=== PATIENT | male | born 1945 | race Caucasian/White ===

== ENCOUNTER → 2016-09-24 | Outpatient (CLI) | payer OTHER ==
[~2016-09-24] VITALS: Ht 170.2 cm; Wt 72.6 kg
[~2016-09-24] MED LIST: REGADENOSON 0.4 MG/5 ML DISP.SYRIN. IV ONE
--- NOTE | 2016-09-24 13:39 | RAD ---
APPROVED REPORT Test Type: Pharmacological Stress Nurse/Tech: Darlene Thomson R.N. Test Indications: cad Cardiac History: CO, cabg 10 yrs ago Medications: see ehr Medical History: see ehr Resting ECG: sr Resting Heart Rate: 56 bpm Resting Blood Pressure: 142/73mmHg Pretest Chest Pain: No chest pain Nurse/Tech Notes lungs cta, heart tones regular, good radial pulse Consent: The procedure was explained to the patient in lay terms. Informed consent was witnessed. Trey eout was entered into [employer]. History and Stress Test performed by Darlene Thomson R.N. Pharm. Details Pharmacologic stress testing was performed using 0.4mg per 5ml of regadenoson given intravenously ove r 7-10 seconds. Stress Symptoms No chest pain or symptoms. POST EXERCISE Reason for Termination: Infusion complete Max HR: 82 bpm Max Blood Pressure: 132/66mmHg Chest Pain: No. Arrhythmia: No. ST Change: No. INTERPRETATION Stress EKG Conclusion: The resting EKG shows a sinus rhythm with mild anterior ST segment changes. The stress EKG shows no significant changes from baseline. No EKG evidence of stress-induced ischemia. Imaging Protocol IMAGE PROTOCOL: Rest Tc-99m/stress Tc-99m 1 day Rest: Stress: Viability: Radiopharm.Tc99m PydenilghYy05s Sestamibi Dose11.3mCi 32.3mCi Img Date 09/24/2016 09/24/2016 Inj-Img Cziq76plw. 75min. Rest Admin Site:IV - Right AntecubitalAdministrator:SABA Mar Stress Admin Site: IV - Right AntecubitalAdministrator: Harrison Norris, RT (R)(N) STRESS DATA End Diast. Vol.67.0mlAv. Heart Rate66.0bpm End Syst. Vol.12.0mlCO Index BSA0.0L/min Myocardial Xxhh157.0gEject. Rtxdmedg74.0% Stress Rates Pk. Fill Rate3.48EDV/secLVtime Pk. Fill 217.23msec Pk. Empty Rate4.42ESV/secLVtime Pk. Ifojo180.03msec 06/17 Pk. Fill0.69EDV/sec Stress Scores Regional WT1.00Summed WT3.00 Regional WM0.00Summed WM11.00 LV Perfusion The stress scans showed no significant defects. The rest scans showed no significant defects. Nuclear imaging shows no reversible ischemia or infarct. Wall Motion Left ventricular systolic function is normal with an ejection fraction of greater than 70%. LV Perf. Quant 17 Seg. SSS1.00 17 Seg. SRS3.00 17 Seg. SDS0.00 Stress Defect Extent (% LAD)0.00Rest Defect Extent (% LAD)0.00Rev. Defect Extent (% LAD)0.00 Stress Defect Extent (% LCX) 20.00Rest Defect Extent (% LCX)33.80Rev. Defect Extent (% LCX)0.00 Stress Defect Extent (% RCA)0.00Rest Defect Extent (% RCA)0.00Rev. Defect Extent (% RCA)0.00 Stress Defect Extent (% TAYLA)4.10Rest Defect Extent (% TAYLA)5.90Rev. Defect Extent (% TAYLA)0.00 Conclusion 1. No EKG evidence of stress-induced ischemia. 2. Nuclear imaging shows no reversible ischemia or infarct. 3. Normal left ventricular systolic function with an ejection fraction of greater than 70%. 4. Low risk Lexiscan nuclear stress test.
== END | disposition home or self-care (01) ==
LOC: NM 08:56
PROVIDERS: ATTEND Internal Medicine Cardiovascular Disease
DX: I25.10 Atherosclerotic heart disease of native coronary artery without angina pectoris (principal)
CPT/HCPCS: 78452; 93017; 96374; 96375; 96376; A9500; J2785

== ENCOUNTER → 2018-04-22 | Outpatient (CLI) | payer OTHER ==
--- NOTE | 2018-04-22 10:05 | CARD ---
MR#: [id number] Date of Study: 04/22/2018 Ordering Physician: SHENG WILKINS, Referring Physician: SHENG WILKINS Tech: Harriett Nicolas RDCS APPROVED REPORT EXAM: Two-dimensional and M-mode echocardiogram with Doppler and color Doppler. Other Information Quality : AverageHR: 62bpm Rhythm : NSR INDICATION CAD Surgery/Intervention Status/Post Aortic Valve Replacement: Bioprosthetic 2D DIMENSIONS RVDd2.2 (2.9-3.5cm)Left Atrium(2D)4.3 (1.6-4.0cm) IVSd1.2 (0.7-1.1cm)Aortic Root(2D)2.9 (2.0-3.7cm) LVDd4.4 (3.9-5.9cm)LVOT Diameter2.1 (1.8-2.4cm) PWd0.8 (0.7-1.1cm)LVDs3.0 (2.5-4.0cm) FS (%) 32.3 %SV53.7 ml LVEF(%)60.8 (>50%) M-Mode DIMENSIONS Left Atrium(MM)4.10 (2.5-4.0cm)Aortic Root3.32 (2.2-3.7cm) Aortic Valve AoV Peak Sebastian.220.4cm/sAoV VTI52.9cm AO Peak GR.19.4mmHgLVOT Peak Sebastian.83.7cm/s AO Mean GR.11mmHgAVA (VMAX)1.34cm2 DWAIN (VTI)1.60cm2 Mitral Valve MV E Ycfskfmj976.5cm/sMV E Peak Gr.4mmHg MV DECEL KEMH204bdKB A Huogquoh09.3cm/s MV E Mean Gr.1mmHgE/A Ratio1.8 MV A Yndimxvp840vp Pulmonary Valve PV Peak Mjtbgnkw42.8cm/s LEFT VENTRICLE The left ventricle is normal size. Proximal septal thickening is noted. The left ventricular systolic function is normal and the ejection fraction is within normal range. The Ejection Fraction is 55-60% . There is normal LV segmental wall motion. Transmitral Doppler flow pattern is Grade II-pseudonormal filling dynamics. RIGHT VENTRICLE The right ventricle is normal size. There is normal right ventricular wall thickness. The right ventr icular systolic function is normal. ATRIA The left atrium is borderline dilated. The right atrium size is normal. The interatrial septum is int act with no evidence for an atrial septal defect or patent foramen ovale as noted on 2-D or Doppler i maging. AORTIC VALVE Doppler and Color Flow revealed trace aortic regurgitation. There is no significant aortic valvular s tenosis. There is a prosthetic aortic valve. The prosthetic aortic valve appears well seated. The jeannine ve is functioning normally MITRAL VALVE The mitral valve is normal in structure and function. There is no evidence of mitral valve prolapse. There is no mitral valve stenosis. Doppler and Color-flow revealed trace mitral regurgitation. TRICUSPID VALVE The tricuspid valve is normal in structure and function. Doppler and Color Flow revealed no tricuspid valve regurgitation noted. There is no tricuspid valve prolapse or vegetation. There is no tricuspid valve stenosis. PULMONIC VALVE Pulmonic valve is not well visualized. Doppler and Color Flow revealed trace pulmonic valvular regurg itation. There is no pulmonic valvular stenosis. GREAT VESSELS The aortic root is normal in size. The ascending aorta is normal in size. PERICARDIAL EFFUSION There is no evidence of significant pericardial effusion. Critical Notification Critical Value: No <Conclusion> The left ventricle is normal size. The left ventricular systolic function is normal and the ejection fraction is within normal range. The Ejection Fraction is 55-60%. There is a prosthetic aortic valve. The prosthetic aortic valve appears well seated. The valve is functioning normally Doppler and Color-flow revealed trace mitral regurgitation. Doppler and Color Flow revealed no tricuspid valve regurgitation noted. Signed by : Reuben Zhao MD Electronically Approved : 04/22/2018 10:04:37
== END | disposition home or self-care (01) ==
LOC: ECHO 08:54
PROVIDERS: ATTEND Internal Medicine Cardiovascular Disease
DX: I25.10 Atherosclerotic heart disease of native coronary artery without angina pectoris (principal); Z95.2 Presence of prosthetic heart valve
CPT/HCPCS: 93306

== ENCOUNTER → 2018-10-21 | Outpatient (CLI) | payer OTHER ==
--- NOTE | 2018-10-21 11:54 | RAD ---
MR#: [id number] Date of Study: 10/21/2018 Ordering Physician: SHENG WILKINS Referring Physician: ABDIFATAH HARDIN Tech: SABA Mar APPROVED REPORT Test Type: Pharmacological Stress Nurse/Tech: Isabel Viramnotes R.N. Test Indications: CAD Cardiac History: CABG, CKD Medications: See Electronic Medical Record Medical History: See Electronic Medical Record Resting ECG: SB w/ inverted P wave in leads AVR, AVL and V2 Resting Heart Rate: 54 bpm Resting Blood Pressure: 129/73mmHg Pretest Chest Pain: No chest pain Nurse/Tech Notes S1S2, lungs CTA Consent: The procedure was explained to the patient in lay terms. Informed consent was witnessed. Trey eout was entered into [employer]. History and Stress Test performed by SABA Mar Pharm. Details Pharmacologic stress testing was performed using 0.4mg per 5ml of regadenoson given intravenously ove r 7-10 seconds. Stress Symptoms No chest pain or symptoms. POST EXERCISE Reason for Termination: Infusion complete Max HR: 89 bpm Max Blood Pressure: 125/62mmHg Blood Pressure response to exercise: Normal blood pressure response during stress. Heart Rate response to exercise: wnl Chest Pain: No. Arrhythmia: No. ST Change: No. INTERPRETATION Stress EKG Conclusion: No evidence of stress induced EKG changes. Imaging Protocol IMAGE PROTOCOL: Rest Tc-99m/stress Tc-99m 1 day Rest: Stress: Viability: Radiopharm.Tc99m CfycejmnrDd07u Sestamibi Dose11.2mCi 33mCi Duration 16min. 13min. Img Date 10/21/2018 10/21/2018 Inj-Img Hsbd17mrn. 60min. STRESS DATA End Diast. Vol.81.0mlEnd Syst. Vol.21.0ml Myocardial Uwhm279.0gEject. Sfrybfjp97.0% Stress Scores Regional WT0.00Summed WT9.00 Regional WM0.00Summed WM11.00 The rest and stress images show normal perfusion, normal contraction and thickening. LV Perfusion 1 TCD/TID: Yes LV Perf. Quant 17 Seg. SSS3.00 17 Seg. SRS2.00 17 Seg. SDS1.00 Stress Defect Extent (% LAD)1.90Rest Defect Extent (% LAD)2.50Rev. Defect Extent (% LAD)0.00 Stress Defect Extent (% LCX) 21.30Rest Defect Extent (% LCX)16.30Rev. Defect Extent (% LCX)0.00 Stress Defect Extent (% RCA)0.00Rest Defect Extent (% RCA)0.00Rev. Defect Extent (% RCA)0.00 Stress Defect Extent (% TAYLA)5.70Rest Defect Extent (% TAYLA)7.40Rev. Defect Extent (% TAYLA)0.00 Other Information Quality:Good Risk Assessment: Moderate Risk Conclusion 1. No evidence of stress induced EKG changes. 2. Normal perfusion at stress/rest. 3. There is TID noted at 1.43 suggestive of balanced ischemia versus small vessel disease. 4. Normal EF at > 60%. 5. Moderate risk study Signed by : Jayce Neal, Electronically Approved : 10/21/2018 11:53:36
--- NOTE | 2018-10-21 17:23 | RAD ---
MR#: [id number] Date of Study: 10/21/2018 Ordering Physician: SHENG WILKINS, Referring Physician: SHENG WILKINS, Tech: Amanda Lewis RDMS, RVT APPROVED REPORT Patient Location: OUT-PATIENT Laterality:Bilateral Indications HISTORY OF BILATERAL ENDARECTOMIES, ASYMPTOMATIC CURRENTLY Surgery/Intervention Endarterectomy: right left Doppler Spectral Velocity Analysis Right Left pCCA 92/21 cm/spCCA 98/23 cm/s mCCA 83/17 cm/smCCA 94/24 cm/s dCCA 71/18 cm/sdCCA 73/19 cm/s Bulb 47/7 cm/sBulb 69/16 cm/s ECA 153/12 cm/sECA 95/11 cm/s pICA 82/15 cm/spICA 48/15 cm/s [place] 75/19 cm/smICA 68/23 cm/s dICA 72/20 cm/sdICA 79/24 cm/s Vert. 33/10 cm/sVert. 35/8 cm/s Subcl. 137/41 cm/sSubcl. 114/38 cm/s ICA/CCA 0.89ICA/CCA 0.81 Findings Based on velocity criteria there is overall 0 to less than 50% stenosis involving the bilateral inter nal carotid vessels. No significant vertebral stenosis is identified. Normal ICA to CCA ratios noted. The bilateral subcla vian velocities are within normal limits. Critical Notification Critical Value: No <Conclusion> 1. No significant bilateral internal carotid artery disease. Signed by : Jayce Neal, Electronically Approved : 10/21/2018 17:23:03
== END | disposition home or self-care (01) ==
LOC: NM 07:45
PROVIDERS: ATTEND Internal Medicine Cardiovascular Disease
DX: I25.10 Atherosclerotic heart disease of native coronary artery without angina pectoris (principal); I65.23 Occlusion and stenosis of bilateral carotid arteries; N18.9 Chronic kidney disease, unspecified; Z95.1 Presence of aortocoronary bypass graft; Z79.01 Long term (current) use of anticoagulants; Z87.891 Personal history of nicotine dependence
CPT/HCPCS: 78452; 93017; 93880; A9500; J2785

== ENCOUNTER → 2019-04-29 | Outpatient (CLI) | payer OTHER ==
--- NOTE | 2019-04-29 10:34 | CARD ---
MR#: [id number] Date of Study: 04/29/2019 Ordering Physician: SHENG STEINBERG, Referring Physician: Mathew HARDIN: Francesca Noguera APPROVED REPORT EXAM: Two-dimensional and M-mode echocardiogram with Doppler and color Doppler. Other Information Quality : AverageHR: 56bpm INDICATION CAD 2D DIMENSIONS RVDd2.1 (2.9-3.5cm)Left Atrium(2D)4.0 (1.6-4.0cm) IVSd1.3 (0.7-1.1cm)Aortic Root(2D)1.7 (2.0-3.7cm) LVDd3.9 (3.9-5.9cm)LVOT Diameter1.5 (1.8-2.4cm) PWd0.8 (0.7-1.1cm)LVDs2.3 (2.5-4.0cm) FS (%) 41.4 %SV48.5 ml LVEF(%)72.9 (>50%) Aortic Valve AoV Peak Sebastian.186.6cm/sAoV VTI42.2cm AO Peak GR.13.9mmHgLVOT Peak Sebastian.66.0cm/s AO Mean GR.8mmHgAVA (VMAX)0.66cm2 Mitral Valve MV E Mexudkks61.7cm/sMV E Peak Gr.5mmHg MV DECEL AVJF647hnXZ A Unewksxj36.7cm/s MV E Mean Gr.1mmHgE/A Ratio1.3 Pulmonary Valve PV Peak Tiszmsoa30.8cm/s Tricuspid Valve TR P. Nuhuufzg651hm/sRAP HLWYUDAY8xtRp TR Peak Gr.94rvBuFELI31kjZh Pulmonary Vein S1 Jiwmoojp71.2cm/sD2 Mlhmbbkm60.5cm/s LEFT VENTRICLE The left ventricle is normal size. There is mild septal left ventricular hypertrophy. The left ventri cular systolic function is normal. The Ejection Fraction is 60-65%. There is normal LV segmental wall motion. Transmitral Doppler flow pattern is Grade II-pseudonormal filling dynamics. RIGHT VENTRICLE The right ventricle cavity is small. The right ventricular systolic function is normal. ATRIA The left atrium size is normal. The right atrium size is normal. The interatrial septum is intact wit h no evidence for an atrial septal defect or patent foramen ovale as noted on 2-D or Doppler imaging. AORTIC VALVE There is a bioprosthetic valve seated in the aortic position. Doppler and Color Flow revealed trace a ortic regurgitation. There is no significant aortic valvular stenosis. MITRAL VALVE The mitral valve is thickened but opens well. There is no evidence of mitral valve prolapse. There is no mitral valve stenosis. Doppler and Color-flow revealed trace mitral regurgitation. TRICUSPID VALVE The tricuspid valve is normal in structure and function. Doppler and Color Flow revealed mild tricusp id regurgitation. There is no tricuspid valve stenosis. PULMONIC VALVE The pulmonic valve is not well visualized. Doppler and Color Flow revealed no pulmonic valvular regur gitation. GREAT VESSELS The aortic root is normal in size. The ascending aorta is Mildly dilated. The IVC was not visualized. PERICARDIAL EFFUSION There is no pleural effusion. There is no evidence of significant pericardial effusion. Critical Notification Critical Value: No <Conclusion> The left ventricular systolic function is normal. The Ejection Fraction is 60-65%. There is normal LV segmental wall motion. Trace aortic regurgitation. Trace mitral regurgitation. Mild tricuspid regurgitation. There is no evidence of significant pericardial effusion. Signed by : Sheng Steinberg, Electronically Approved : 04/29/2019 10:34:05
--- NOTE | 2019-04-29 11:15 | RAD ---
Bilateral lower extremity arterial ultrasound History: Leg pain Findings: Multiple grayscale, color, and duplex spectral analysis sonographic images were acquired of the lower extremity arteries bilaterally. There are no previous similar exams. There is scattered plaque bilaterally. No vessel occlusion is demonstrated. Other than triphasic waveform of the right common femoral artery, there are biphasic waveforms throughout the lower extremity arteries bilaterally. Velocities in cm/sec: RIGHT Common femoral artery 141 Profunda femoris artery 102 Proximal SFA 103 Mid SFA 197 Distal SFA 97 Popliteal artery 61 Posterior tibial artery 57 proximally and 55 distally Peroneal artery 41 Anterior tibial artery 61 Dorsalis pedis artery 74 LEFT: Common femoral artery 120 Profunda femoris artery 88 Proximal SFA 87 Mid SFA 100 Distal SFA 67 Popliteal artery 81 Posterior tibial artery 64 proximally and 69 distally Peroneal artery 67 Anterior tibial artery 30 Dorsalis pedis artery 15 Impression: 1. There is increasing velocity between the proximal to mid right superficial femoral artery likely due to underlying stenosis. There is scattered plaque bilaterally. Electronically signed by: Ethan Felipe MD (04/29/2019 11:13 AM) [facility]
--- NOTE | 2019-04-29 12:28 | RAD ---
MR#: [id number] Date of Study: 04/29/2019 Ordering Physician: SHENG WILKINS, Referring Physician: ABDIFATAH HARDIN Tech: SABA Mar APPROVED REPORT Test Type: Pharmacological Stress Nurse/Tech: Juan Pablo CONNORS Test Indications: CAD Cardiac History: CABG x5 15 yrs ago, See EMR Medications: ASA 81mg QD, See EMR Medical History: X-Smoker quit 20 yrs ago, See EMR Resting ECG: SB Resting Heart Rate: 56 bpm Resting Blood Pressure: 134/66mmHg Pretest Chest Pain: No chest pain Nurse/Tech Notes Lung CTA, Heart tones regular. Consent: The procedure was explained to the patient in lay terms. Informed consent was witnessed. Trey eout was entered into [employer]. History and Stress Test performed by RT Ronel (R) (N) Pharm. Details Pharmacologic stress testing was performed using 0.4mg per 5ml of regadenoson given intravenously ove r 7-10 seconds. Stress Symptoms No chest pain or symptoms. POST EXERCISE Reason for Termination: Infusion complete Max HR: 82 bpm Max Blood Pressure: 120/61mmHg Blood Pressure response to exercise: Normal blood pressure response during stress. Heart Rate response to exercise: WNL Chest Pain: No. Arrhythmia: No. ST Change: No. INTERPRETATION Stress EKG Conclusion: Baseline EKG showed sinus rhythm. No ischemic changes at peak stress. No arr hythmias. Rest: Stress: Viability: Radiopharm.Tc99m ImcmoxcrlMa66x Sestamibi Dose10.2mCi 33mCi Duration 15min. 10min. Img Date 04/29/2019 04/29/2019 STRESS DATA End Diast. Vol.74.0mlAv. Heart Rate66.0bpm End Syst. Vol.11.0mlCO Index BSA0.0L/min Myocardial Dzhn965.0gEject. Oynvjxmg69.0% Stress Rates Pk. Fill Rate3.72EDV/secLVtime Pk. Fill 160.76msec Pk. Empty Rate3.71ESV/secLVtime Pk. Tdjwe780.42msec 1/3 Pk. Fill1.80EDV/sec Stress Scores Regional WT1.00Summed WT2.00 Regional WM0.00Summed WM7.00 Study quality was good. Left Ventricular size was Normal at Rest and Stress. Lung uptake was . Left Ventricular ejection fraction is 85%. The rest and stress images show normal perfusion, normal contraction and thickening. LV Perf. Quant 17 Seg. SSS4.00 17 Seg. SRS5.00 17 Seg. SDS0.00 Stress Defect Extent (% LAD)1.30Rest Defect Extent (% LAD)0.00Rev. Defect Extent (% LAD)0.00 Stress Defect Extent (% LCX) 21.30Rest Defect Extent (% LCX)23.80Rev. Defect Extent (% LCX)0.00 Stress Defect Extent (% RCA)0.00Rest Defect Extent (% RCA)0.00Rev. Defect Extent (% RCA)0.00 Stress Defect Extent (% TAYLA)6.50Rest Defect Extent (% TAYLA)6.10Rev. Defect Extent (% TAYLA)0.00 Conclusion 1. Regadenoson cardioisotope stress test did not show any evidence of ischemia or infarct. 2. Normal left ventricular systolic function with ejection fraction calculated at 85%. 3. Low risk for cardiac events. Signed by : Sheng Wilkins Electronically Approved : 04/29/2019 12:27:46
== END | disposition home or self-care (01) ==
LOC: NM 07:30
PROVIDERS: ATTEND Internal Medicine Cardiovascular Disease
DX: I36.1 Nonrheumatic tricuspid (valve) insufficiency (principal); I70.293 Other atherosclerosis of native arteries of extremities, bilateral legs; I25.10 Atherosclerotic heart disease of native coronary artery without angina pectoris; I51.7 Cardiomegaly; Z95.1 Presence of aortocoronary bypass graft; Z87.891 Personal history of nicotine dependence
CPT/HCPCS: 78452; 93017; 93306; 93925; A9500; J2785

== ENCOUNTER → 2020-05-15 | Outpatient (CLI) | payer MEDICARE ==
--- NOTE | 2020-05-15 13:02 | CARD ---
MR#: [id number] Date of Study: 05/15/2020 Ordering Physician: SHENG WILKINS, Referring Physician: SHENG WILKINS, Tech: Gayla Gotti RDCS APPROVED REPORT EXAM: Two-dimensional and M-mode echocardiogram with Doppler and color Doppler. Other Information Quality : AduquateHR: 59bpm Rhythm : NSRTechnically limited study due to body habitus/pectus INDICATION CAD, Aortic valve replacement. CABG 2D DIMENSIONS RVDd3.7 (2.9-3.5cm)IVSd1.2 (0.7-1.1cm) Aortic Root(2D)3.2 (2.0-3.7cm)LVDd4.1 (3.9-5.9cm) PWd1.0 (0.7-1.1cm)LVDs2.5 (2.5-4.0cm) FS (%) 38.9 %SV52.4 ml LVEF(%)69.8 (>50%) Aortic Valve AoV Peak Sebastian.213.8cm/sAoV VTI48.8cm AO Peak GR.18.3mmHgLVOT Peak Sebastian.72.4cm/s AO Mean GR.10mmHg Mitral Valve MV E Wzcevbew68.3cm/sMV DECEL UCWC956rj MV A Fdiepwuv87.6cm/sE/A Ratio1.5 MV A Iwbcnrrt440vg Pulmonary Valve PV Peak Wcnmvydv33.3cm/s Tricuspid Valve TR P. Ixfxgoxt522tw/sRAP HTOFAPDM0dxJf TR Peak Gr.07xnSbLSMW70zxYo LEFT VENTRICLE The left ventricle is normal size. Mild basal septal hypertrophy. Left ventricle systolic function is normal. The Ejection Fraction is 60-65%. There is normal LV segmental wall motion. Moderate diastoli c dysfunction. Grade II. RIGHT VENTRICLE The right ventricle is normal size. The right ventricular systolic function is normal. ATRIA The left atrium size is normal. The right atrium size is normal. The interatrial septum is intact wit h no evidence for an atrial septal defect or patent foramen ovale as noted on 2-D or Doppler imaging. AORTIC VALVE There is a bioprosthetic-porcine valve present, probable jaime TAVR. Peak pressure gradient through the valve is 18mmHg and mean of 10mmHg. Mild paravalvular aortic regurgitation. MITRAL VALVE The mitral valve is normal in structure. There is no mitral valve stenosis. Mild mitral regurgitation . TRICUSPID VALVE The tricuspid valve is normal in structure and function. Mild tricuspid regurgitation. The PA pressur e was estimated at 30-35 mmHg. There is no tricuspid valve stenosis. PULMONIC VALVE The pulmonic valve is not well visualized. Trace pulmonic valvular regurgitation. There is no pulmoni c valvular stenosis. GREAT VESSELS The aortic root is normal in size. The ascending aorta is normal in size. The IVC is normal in size a nd collapses >50% with inspiration. PERICARDIAL EFFUSION There is no evidence of significant pericardial effusion. Critical Notification Critical Value: No <Conclusion> Left ventricle systolic function is normal. The Ejection Fraction is 60-65%. There is normal LV segmental wall motion. There is a bioprosthetic-porcine valve present, probable jaime TAVR. Peak pressure gradient through the valve is 18mmHg and mean of 10mmHg. Mild paravalvular aortic regurgitation. Signed by : Jayce Neal, Electronically Approved : 05/15/2020 13:02:23
== END ==
LOC: ECHO 11:00
PROVIDERS: ATTEND Internal Medicine Cardiovascular Disease
DX: I08.3 Combined rheumatic disorders of mitral, aortic and tricuspid valves (principal); I25.10 Atherosclerotic heart disease of native coronary artery without angina pectoris
CPT/HCPCS: 93306

== ENCOUNTER → 2020-06-29 | Outpatient (CLI) | payer MEDICARE ==
[2020-06-29 08:00] LABS: CHOLESTEROL/HDL RATIO 2.4
--- NOTE | 2020-06-29 09:32 | RAD ---
MR#: [id number] Date of Study: 06/29/2020 Ordering Physician: SHENG WILKINS, Referring Physician: SHENG WILKINS, Tech: APPROVED REPORT Patient Location: OUT-PATIENT Laterality:Bilateral Indications carotid artery stenosis Doppler Spectral Velocity Analysis Right Left pCCA 72/18 cm/spCCA 97/25 cm/s mCCA 86/20 cm/smCCA 89/22 cm/s dCCA 75/17 cm/sdCCA 81/22 cm/s Bulb 7/ cm/sBulb ECA 142/ cm/sECA 86/ cm/s pICA 71/14 cm/spICA 52/15 cm/s [place] 65/19 cm/smICA 63/22 cm/s dICA 80/27 cm/sdICA 84/28 cm/s ICA/CCA 0.93ICA/CCA 0.87 Findings Grayscale images of the bilateral common carotid, external and internal carotid vessels demonstrates moderate diffuse intimal hyperplasia with mild diffuse scattered plaque. Based on spectral waveforms and color Doppler there is overall 0 to less than 50% stenosis in the bilateral internal carotid art eries. Normal ICA to CCA ratios bilaterally. Normal antegrade vertebral velocities bilaterally. Critical Notification Critical Value: No <Conclusion> 1. No significant bilateral carotid occlusive disease. Signed by : Jayce Neal, Electronically Approved : 06/29/2020 09:31:38
--- NOTE | 2020-06-30 09:48 | RAD ---
MR#: [id number] Date of Study: 06/29/2020 Ordering Physician: SHENG WILKINS, Referring Physician: ABDIFATAH HARDIN Tech: SABA Mar APPROVED REPORT Test Type: Pharmacological Stress Nurse/Tech: Boom Han RN Test Indications: CAD Cardiac History: SC 12yrs ago, CABG, See EMR. Medications: ASA, See EMR. Medical History: X-Smoker, CKD, See EMR. Resting ECG: SR Resting Heart Rate: 56 bpm Resting Blood Pressure: 128/70mmHg Pretest Chest Pain: No chest pain Nurse/Tech Notes Lungs CTA, Heart tones regular. Consent: The procedure was explained to the patient in lay terms. Informed consent was witnessed. Trey eout was entered into [employer]. History and Stress Test performed by MARY BETH Boo, NICANOR (R) (N) Pharm. Details Pharmacologic stress testing was performed using 0.4mg per 5ml of regadenoson given intravenously ove r 7-10 seconds. Stress Symptoms No chest pain or symptoms. POST EXERCISE Reason for Termination: Infusion complete Max HR: 77 bpm Max Blood Pressure: 128/54mmHg Blood Pressure response to exercise: Normal blood pressure response during stress. Heart Rate response to exercise: WNL Chest Pain: No. Arrhythmia: No. ST Change: No. INTERPRETATION Stress EKG Conclusion: Baseline EKG showed sinus rhythm. No ischemic changes at peak stress. No arr hythmias. Imaging Protocol IMAGE PROTOCOL: Rest Tc-99m/stress Tc-99m 1 day Rest: Stress: Viability: Radiopharm.Tc99m AxlwnhxegRw15n Sestamibi Fgzw88bVe 32mCi Duration 15min. 13.5min. Img Date 06/29/2020 06/29/2020 Inj-Img Jbzv86ktr. 60min. Rest Admin Site:IV - Right AntecubitalAdministrator:Azalea Whittaker RT (R)(N) Stress Admin Site: IV - Right AntecubitalAdministrator: MARY BETH Boo, JUAN PABLOT (R)(N) STRESS DATA End Diast. Vol.76.0mlLVEDV index BSA41.0ml End Syst. Vol.18.0mlLVESV index BSA10.0ml Myocardial Ciev853.0gEject. Gynvyybf28.0% Stress Scores Regional WT0.00Summed WT0.00 Regional WM0.00Summed WM8.00 Study quality was good. Left Ventricular size was Normal at Rest and Stress. Lung uptake was . Left Ventricular ejection fraction is 75%. The rest and stress images show normal perfusion, normal contraction and thickening. LV Perf. Quant 17 Seg. SSS4.00 17 Seg. SRS1.00 17 Seg. SDS3.00 Stress Defect Extent (% LAD)0.00Rest Defect Extent (% LAD)0.00Rev. Defect Extent (% LAD)0.00 Stress Defect Extent (% LCX) 32.50Rest Defect Extent (% LCX)2.50Rev. Defect Extent (% LCX)28.80 Stress Defect Extent (% RCA)0.00Rest Defect Extent (% RCA)0.00Rev. Defect Extent (% RCA)0.00 Stress Defect Extent (% TAYLA)7.80Rest Defect Extent (% TAYLA)1.10Rev. Defect Extent (% TAYLA)5.70 Conclusion 1. Regadenoson cardioisotope stress test did not show any evidence of ischemia or infarct. 2. Normal left ventricular systolic function with ejection fraction calculated at 75%. 3. Low risk for cardiac events. Signed by : Sheng Wilkins, Electronically Approved : 06/30/2020 09:47:28
== END ==
LOC: NM 09:28
PROVIDERS: ATTEND Internal Medicine Cardiovascular Disease
DX: I65.23 Occlusion and stenosis of bilateral carotid arteries (principal); I25.10 Atherosclerotic heart disease of native coronary artery without angina pectoris; I25.2 Old myocardial infarction
CPT/HCPCS: 36415; 78452; 80061; 93017; 93880; A9500; J2785

== ENCOUNTER → 2021-07-24 | Outpatient (CLI) | payer MEDICARE ==
--- NOTE | 2021-07-24 17:30 | CARD ---
MR#: [id number] Date of Study: 07/24/2021 Ordering Physician: SHENG WILKINS, Referring Physician: SHENG WILKINS Tech: Samantha Luis [facility] APPROVED REPORT EXAM: Two-dimensional and M-mode echocardiogram with Doppler and color Doppler. Other Information Quality : Technically LimitedHR: 63bpm Rhythm : Atrial Fibrillation INDICATION Dyspnea Atrial Fibrillation RISK FACTORS Hypertension Smoking 2D DIMENSIONS RVDd2.3 (2.9-3.5cm)Left Atrium(2D)4.1 (1.6-4.0cm) IVSd1.1 (0.7-1.1cm)Aortic Root(2D)2.6 (2.0-3.7cm) LVDd3.9 (3.9-5.9cm)LVOT Diameter1.7 (1.8-2.4cm) PWd1.1 (0.7-1.1cm)LVDs2.4 (2.5-4.0cm) FS (%) 37.2 %SV43.9 ml Aortic Valve AoV Peak Sebastian.188.5cm/sAoV VTI42.5cm AO Peak GR.14.2mmHgLVOT Peak Sebastian.82.7cm/s AO Mean GR.6mmHgAVA (VMAX)0.98cm2 Pulmonary Valve PV Peak Xiqzuxra613.5cm/s Tricuspid Valve TR P. Zbywzkch988aa/sTR Peak Gr.24mmHg LEFT VENTRICLE The left ventricle is normal size. There is borderline to mild concentric left ventricular hypertroph y. Left ventricular systolic function is normal. LV ejection fraction is 55 to 60%. Septal motion con sistent with post-operative state. RIGHT VENTRICLE The right ventricle is normal size. There is normal right ventricular wall thickness. Systolic functi on is borderline reduced. ATRIA The left atrium size is normal. The right atrium size is normal. The interatrial septum is intact wit h no evidence for an atrial septal defect or patent foramen ovale as noted on 2-D or Doppler imaging. AORTIC VALVE Doppler and Color Flow revealed trace aortic regurgitation. There is no significant aortic valvular s tenosis. There is a bioprosthetic aortic valve prosthesis. MITRAL VALVE The mitral valve is normal in structure and function. There is no evidence of mitral valve prolapse. There is no mitral valve stenosis. Doppler and Color-flow revealed mild mitral regurgitation. TRICUSPID VALVE The tricuspid valve is normal in structure and function. Doppler and Color Flow revealed trace tricus pid regurgitation. Estimated PAP 27 mmHg. There is no tricuspid valve stenosis. PULMONIC VALVE The pulmonary valve is normal in structure and function. Doppler and Color Flow revealed no pulmonic valvular regurgitation. GREAT VESSELS The aortic root is normal in size. The ascending aorta is normal in size. The IVC is normal in size a nd collapses >50% with inspiration. PERICARDIAL EFFUSION There is no evidence of significant pericardial effusion. Critical Notification Critical Value: No <Conclusion> The left ventricle is normal size. Left ventricular systolic function is normal. LV ejection fraction is 55 to 60%. Septal motion consistent with post-operative state. There is borderline to mild concentric left ventricular hypertrophy. There is a bioprosthetic aortic valve prosthesis. Doppler and Color Flow revealed trace aortic regurgitation. There is no significant aortic valvular stenosis. Doppler and Color-flow revealed mild mitral regurgitation. Doppler and Color Flow revealed trace tricuspid regurgitation. Estimated PAP 27 mmHg. Signed by : Reuben Zhao MD Electronically Approved : 07/24/2021 17:30:36
--- NOTE | 2021-07-24 18:05 | RAD ---
MR#: [id number] Date of Study: 07/24/2021 Ordering Physician: SHENG WILKINS, Referring Physician: ABDIFATAH HARDIN Tech: RT Nicole CaldwellR) (N) APPROVED REPORT Test Type: Pharmacological Stress Nurse/Tech: Lisa Cain RN Test Indications: Coronary Artery Disease Cardiac History: CABG x5,valve replacement Medications: See Electronic Medical Record Medical History: See Electronic Medical Record Resting ECG: SR with PACs Resting Heart Rate: 69 bpm Resting Blood Pressure: 130/60mmHg Pretest Chest Pain: No chest pain Nurse/Tech Notes S1,S2 and lungs clear to auscultation. Consent: The procedure was explained to the patient in lay terms. Informed consent was witnessed. Trey eout was entered into [employer]. History and Stress Test performed by RT Javi (R) (N) Pharm. Details Pharmacologic stress testing was performed using 0.4mg per 5ml of regadenoson given intravenously ove r 7-10 seconds. Stress Symptoms No chest pain or symptoms. POST EXERCISE Reason for Termination: Infusion complete Max HR: 120 bpm Max Blood Pressure: 111/70mmHg Blood Pressure response to exercise: Normal blood pressure response during stress. Heart Rate response to exercise: WNL Chest Pain: No. Arrhythmia: Yes. PACs ST Change: No. INTERPRETATION Stress EKG Conclusion: The resting EKG shows a sinus rhythm with mild nonspecific ST segment changes. The stress EKG shows no significant changes from baseline. No EKG evidence of stress-induced ischemia. Imaging Protocol IMAGE PROTOCOL: Rest Tc-99m/stress Tc-99m 1 day Rest: Stress: Viability: Radiopharm.Tc99m IjmwagmvbKw77m Sestamibi Dose10.5mCi 32mCi Duration 15min. 10min. Img Date 07/24/2021 07/24/2021 Inj-Img Mtlt82dpk. 60min. Rest Admin Site:IV - Right AntecubitalAdministrator:RT Kary Caldwell)(N) Stress Admin Site: IV - Right AntecubitalAdministrator: Belem Parson, NMTCB, ARRT (R)(N) STRESS DATA End Diast. Vol.68.0mlAv. Heart Rate69.0bpm End Syst. Vol.9.0mlCO Index BSA0.0L/min Myocardial Gpvh696.0gEject. Zknjcvet79.0% Stress Rates Pk. Fill Rate3.71EDV/secLVtime Pk. Fill 130.73msec Pk. Empty Rate4.23ESV/secLVtime Pk. Axwlp426.97msec 06/17 Pk. Fill2.03EDV/sec Stress Scores Regional WT3.00Summed WT13.00 Regional WM0.00Summed WM5.00 LV Perfusion The stress scans showed no significant defects. The rest scans showed no significant defects. Nuclear imaging shows no evidence of reversible ischemia or infarct. Wall Motion Intact LV systolic function with ejection fraction of greater than 75%. LV Perf. Quant 17 Seg. SSS2.00 17 Seg. SRS1.00 17 Seg. SDS1.00 Stress Defect Extent (% LAD)0.00Rest Defect Extent (% LAD)0.00Rev. Defect Extent (% LAD)0.00 Stress Defect Extent (% LCX) 16.30Rest Defect Extent (% LCX)13.80Rev. Defect Extent (% LCX)0.00 Stress Defect Extent (% RCA)0.00Rest Defect Extent (% RCA)0.00Rev. Defect Extent (% RCA)0.00 Stress Defect Extent (% TAYLA)2.80Rest Defect Extent (% TAYLA)2.60Rev. Defect Extent (% TAYLA)0.00 Conclusion 1. No EKG evidence of stress-induced ischemia. 2. Nuclear imaging shows no reversible ischemia or infarct. 3. Normal left ventricular systolic function with an ejection fraction of greater than 75%. 4. Low risk Lexiscan nuclear stress test. Signed by : Reuben Zhao MD Electronically Approved : 07/24/2021 18:04:52
--- NOTE | 2021-07-28 09:04 | RAD ---
MR#: [id number] Date of Study: 07/24/2021 Ordering Physician: SHENG STEINBERG, Referring Physician: SHENG STEINBERG, Tech: Dominick Liz MBA, RDMS, RVT, RDCS, RTR APPROVED REPORT Patient Location: OUT-PATIENT Laterality:Bilateral Indications CAROTID ARTERY STENOSIS Doppler Spectral Velocity Analysis Right Left pCCA 75/15 cm/spCCA 89/20 cm/s mCCA 83/17 cm/smCCA 94/16 cm/s dCCA 85/15 cm/sdCCA 96/19 cm/s Bulb 88/18 cm/sBulb 65/15 cm/s ECA 177/ cm/sECA 100/ cm/s pICA 81/16 cm/spICA 68/21 cm/s [place] 76/22 cm/smICA 90/26 cm/s dICA 77/23 cm/sdICA 80/26 cm/s Vert. 39/ cm/sVert. 39/ cm/s Subcl. 74/ cm/sSubcl. 95/ cm/s ICA/CCA 0.95ICA/CCA 1.01 Findings Grayscale images of extracranial carotid vessels bilaterally showed mild diffuse atherosclerosis with moderate atherosclerotic plaque in the carotid bulbs. Spectral waveforms and color duplex analysis showed normal velocities in common carotid and internal carotid arteries bilaterally suggestive of 0 to less than 50% stenosis.. The right external carotid artery showed elevated velocities suggesting a moderate 50 to 69% stenosis. The left external carotid artery showed normal velocities. The ICA t o CCA ratio is within normal limits bilaterally. The vertebral arteries showed antegrade flow with n ormal velocities bilaterally. Critical Notification Critical Value: No <Conclusion> Carotid arterial duplex scan did not show any significant stenosis involving bilateral common or inte rnal carotid arteries. The right external carotid artery showed moderate stenosis. Signed by : Sheng Steinberg, Electronically Approved : 07/28/2021 09:03:24
--- NOTE | 2021-07-28 09:09 | RAD ---
MR#: [id number] Date of Study: 07/24/2021 Ordering Physician: SHENG STEINBERG, Referring Physician: SHENG STEINBERG, Tech: Dominick Liz MBA, RDMS, RVT, RDCS, RTR APPROVED REPORT Patient Location: OUT-PATIENT Indications PAD VELOCITY AND DOPPLER WAVEFORM ANALYSIS RIGHT cm/secWaveformSeverity LEFT cm/secWaveform Severity dCFA 176.0BiphasicdCFA 77.0Biphasic Prof Fem Art. 67.0BiphasicProf Fem Art. 62.0Biphasic Fem Art Prox. 88.0BiphasicFem Art Prox. 91.0Biphasic Fem Art Mid. 98.0BiphasicFem Art Mid. 92.0Biphasic Fem Art Dist. 100.0BiphasicFem Art Dist. 75.0Biphasic Pop Art([place]ossa) 67.0BiphasicPop Art([place]) 80.0Biphasic [employer] Prox. 59.0BiphasicPTA Prox. 64.0Biphasic [employer] T[employer]OR Dist. 39.0BiphasicPTA Dist. 76.0Biphasic Per Art Mid. Per Art Mid. 87.0Biphasic SABINO Prox. 88.0BiphasicATA Prox. 32.0Biphasic DPA 64BiphasicDPA 34Biphasic Findings Grayscale images of bilateral lower extremity peripheral arteries showed mild diffuse atherosclerosis . Spectral waveform and color duplex analysis showed biphasic waveforms in common femoral, deep femo ral, superficial femoral and popliteal arteries bilaterally. The right common femoral artery showed slightly increased velocities but the other arteries showed normal velocities. Below the knee, the r ight peroneal artery was not visualized and the posterior tibial and anterior tibial arteries showed biphasic waveforms with normal velocities. The left lower extremity showed three-vessel runoff below the knee with normal velocities with biphasic waveforms. No significant peripheral artery stenosis was noted. Critical Notification Critical Value: No <Conclusion> Bilateral lower extremity arterial duplex scan did not show any significant peripheral artery stenosi s. Signed by : Sheng Steinberg, Electronically Approved : 07/28/2021 09:08:41
== END ==
LOC: NM 07:34
PROVIDERS: ATTEND Internal Medicine Cardiovascular Disease
DX: I34.0 Nonrheumatic mitral (valve) insufficiency (principal); I65.23 Occlusion and stenosis of bilateral carotid arteries; I70.203 Unspecified atherosclerosis of native arteries of extremities, bilateral legs; I51.7 Cardiomegaly; I25.10 Atherosclerotic heart disease of native coronary artery without angina pectoris; I48.91 Unspecified atrial fibrillation; R06.00 Dyspnea, unspecified
CPT/HCPCS: 78452; 93017; 93306; 93880; 93925; A9500; J2785; C8929